=== PATIENT | female | born 1975 | race Two or more races ===

== ENCOUNTER 2020-08-07 12:00 | Day surgery (SDC) | payer OTHER ==
[~2020-08-07 12:00] MED LIST: CLONAZEPAM0.5 MG/TAB PO; NABUMETONE500 MG PO; PERCOCET 5/3251 TAB PO
== END 2020-08-07 22:55 | disposition home or self-care (01) ==
LOC: CIR.AMB 12:00
PROVIDERS: ATTEND Orthopaedic Surgery Hand Surgery
DX: M19.041 Primary osteoarthritis, right hand (principal); Z20.822 Contact with and (suspected) exposure to COVID-19

== ENCOUNTER 2022-02-18 21:23 | Emergency (ER) | payer OTHER ==
[~2022-02-18] VITALS: Ht 162.6 cm; Wt 64.9 kg
[2022-02-18] MEDS ORDERED: TYLENOL (21:43)
[2022-02-18] MEDS ORDERED: ADVIL (21:44)
[2022-02-19] MEDS ORDERED: ONDANSETRON ODT4 MG PO (06:03)
[2022-02-19] MEDS ORDERED: PEPCID40 MG PO (06:03)
== END 2022-02-19 06:21 ==
LOC: ER 21:23
DX: K29.70 Gastritis, unspecified, without bleeding (principal); R10.84 Generalized abdominal pain; R11.10 Vomiting, unspecified